=== PATIENT | male | born 1960 | race Caucasian/White ===

== ENCOUNTER 2018-01-14 14:09 | Outpatient (CLI) | payer MEDICARE ==
[2018-01-14 15:22] LABS: #Basophils 0.1 thou/uL (0.0-0.2); #Eosinphils 0.1 thou/uL (0.0-0.7); #Lymphocytes 2.1 thou/uL (1.20-3.40); #Monocytes 0.6 thou/uL (0.11-0.59); #Neutrophils 4.8 thou/uL (1.40-6.50); %Basophils 0.8 % (0.0-1.0); %Eosinophils 1.6 % (0.0-10.0); %Lymphocytes 27.4 % (21.0-51.0); %Monocytes 8.1 % (0.0-10.0); %Neutrophils 62.2 % (42.0-75.0); Hemoglobin 13.7 g/dL (14.0-18.0); Mean Corpuscular HGB CONC 33.1 g/dL (32.0-36.0); Mean Corpuscular Hemoglobin 30.8 pg (27.0-31.0); Mean Corpuscular Volume 93.2 fL (78.0-98.0); Mean Platelet Volume 8.1 fL (7.4-10.4); Platelet Count 170 thou/uL (130-400); RBC Distribution Width 11.4 % (11.5-14.5); Red Blood Cell (RBC) Count 4.46 mill/uL (4.70-6.10); White Blood Cell (WBC) Count 7.8 thou/uL (4.8-10.8)
[2018-01-14 15:41] LABS: ALT (SGPT) 19 U/L (8-55); AST (SGOT) 19 U/L (5-34); Albumin 4.6 g/dL (3.5-5.0); Alkaline Phosphatase 94 U/L (40-150); Anion Gap 9 mmol/L (10-20); BUN (Urea Nitrogen) 12 mg/dL (8.4-25.7); Bilirubin, Total 0.3 mg/dL (0.2-1.2); Calc. Creatinine Clearance 0 mL/min (70-130); Calcium 9.8 mg/dL (7.8-10.44); Carbon Dioxide 35 mmol/L (22-29); Chloride 97 mmol/L (98-107); Estimated GFR-MDRD Greater than 90; Globulin 3.6 g/dL (2.4-3.5); Glucose 100 mg/dL (70-105); Potassium 4.2 mmol/L (3.5-5.1); Protein, Total 8.2 g/dL (6.0-8.3); Sodium 137 mmol/L (136-145)
== END 2018-01-14 14:10 | disposition home or self-care (01) ==
LOC: LABBT 14:09
PROVIDERS: ATTEND Surgery
DX: Z01.818 Encounter for other preprocedural examination (principal); Z46.2 Encounter for fitting and adjustment of other devices related to nervous system and special senses
CPT/HCPCS: 80053; 85025; 93005; 93010

== ENCOUNTER 2018-01-17 07:33 | Day surgery (SDC) | payer MEDICARE ==
[2018-01-14 14:23] VITALS: BMI 36.8
[2018-01-17] MEDS ORDERED: CEFAZOLIN/Water 2 GM/20 ML SYRINGE ONE (08:45)
[2018-01-17] MEDS ORDERED: Lidocaine 1% (PF) 30 ML VIAL ONE (09:09)
[2018-01-17] MEDS ORDERED: Bupivacaine HCl 0.5%/Epinephrine 1:200,000/PF 30 ml Vial ONE (09:09)
[2018-01-17] MEDS ORDERED: Sodium Chloride 0.9% 0 ML ONE (09:09)
[2018-01-17] MEDS ORDERED: Midazolam HCl 2 mg/2 ml Vial ONE ×2 (09:25→09:26)
[2018-01-17] MEDS ORDERED: HYDROmorphone 2 MG/ML VIAL ONE (09:26)
[2018-01-17] MEDS ORDERED: Fentanyl 100 MCG/2 ML VIAL ONE (09:26)
--- NOTE | 2018-01-17 11:46 | OP ---
PREOPERATIVE DIAGNOSIS: Pain pump, battery depletion. SURGEON: Dakotah Quarles M.D. PROCEDURE PERFORMED: Removal and replacement of implantable programmable intrathecal pain pump. INDICATIONS: This is a 57-year-old male who has an existing pain pump for chronic pain, whose batter y is depleted and needs replacement. FINDINGS: The cavity around the old pump had this milky creamy fluid surrounding it like lymphatic f luid. Cultures were obtained, did not appear infected. PROCEDURE IN DETAIL: After informed consent was obtained, the patient was taken to the operating reza m and given general mask anesthesia, placed in the supine position. His flank and abdomen was preppe d and draped in usual fashion. Local anesthesia infiltrated subcutaneously and deep. Transverse inc ision was performed. The subcu divided sharply. When the capsule was incised, this white creamy flu id came out from around the pain pump. This was sent for culture. There was also calcification of t he membrane around the pain pump as well. I was able to then extract the old pain pump and disconnec t the tubing. Prior to disconnecting the tubing, we aspirated the pain pump to clear the system and tubing of medicine and to ensure good CSF flow. Then, the old pain pump was disconnected. The drug was removed from the old pain pump. The new pain pump was emptied of saline and the drug was then pl aced in the new pain pump. The new pain pump was then connected to the tubing and tubing secured wit h 0 silk suture. A 2-0 Prolene sutures were placed in 4 quadrants. The cavity was thoroughly irriga dario with saline and all the white stuff was removed from the cavity. I did not see any active extrav asation of other white stuff. The tubing inspected and there was not a leak seen on the tubing. The tubing was curled posteriorly and the new pain pump was placed within this cavity. The Prolenes wer e then tied down to secure it in place. The subcu was reapproximated with interrupted 0 Vicryl sutur e and the skin closed with a running subcuticular 4-0 Rapide. Steri-Strips applied. Sterile bandage applied. The patient tolerated the procedure well and was transferred to recovery in good condition . Sponge and needle count verified correct x2.
[2018-01-17] MEDS ORDERED: PROPOFOL 200 MG/20 ML VIAL ONE (13:15)
[2018-01-17] MEDS ORDERED: Lidocaine 1% PF 5 ML VIAL ONE (13:15)
[2018-01-17] MEDS ORDERED: Glycopyrrolate 0.2 MG/ML 5 ML SYRINGE ONE (13:15)
== END 2018-01-17 12:05 | disposition home or self-care (01) ==
LOC: SDC 07:33
PROVIDERS: ATTEND Surgery
PROC: 0JPT0VZ Removal of Infusion Pump from Trunk Subcutaneous Tissue and Fascia, Open Approach (ICD-10-PCS; principal; 2018-01-17)
PROC: 0JH Subcutaneous Tissue and Fascia, Insertion (ICD-10-PCS; 2018-01-17)
DX: Z45.1 Encounter for adjustment and management of infusion pump (principal); G89.29 Other chronic pain; M54.9 Dorsalgia, unspecified; M81.0 Age-related osteoporosis without current pathological fracture; I10 Essential (primary) hypertension; E78.5 Hyperlipidemia, unspecified; K21.9 Gastro-esophageal reflux disease without esophagitis; I25.10 Atherosclerotic heart disease of native coronary artery without angina pectoris; J44.9 Chronic obstructive pulmonary disease, unspecified; G43.909 Migraine, unspecified, not intractable, without status migrainosus; F17.210 Nicotine dependence, cigarettes, uncomplicated; Z79.84 Long term (current) use of oral hypoglycemic drugs; Z79.899 Other long term (current) drug therapy; Z88.8 Allergy status to other drugs, medicaments and biological substances; Z91.013 Allergy to seafood; Z99.81 Dependence on supplemental oxygen
CPT/HCPCS: 62362; 87070; 87075; 87205; C1772; A4216; J0670; J1170; J2001; J2250; J2704; J3010

== ENCOUNTER 2018-03-12 08:02 | Outpatient (CLI) | payer MEDICARE ==
--- NOTE | 2018-03-12 11:32 | MRI ---
MRI LUMBAR SPINE WITHOUT CONTRAST: HISTORY: S32.050A, closed compression fracture, fifth lumbar vertebra, initial encounter. COMPARISON: MRI lumbar spine from 2015. FINDINGS: The bones are osteoporotic. The aortic contour is nonaneurysmal. Mild tortuosity of the aorta. Multiple T2 hyperintense foci of the left kidney, suggestive of cysts. No marrow infiltrative process. The conus medullaris terminates near the inferior endplate of L1. There are compression fractures throughout the lumbar spine, from L1 to L5, which all contain cement. The L2 and L4 compression fractures have mildly progressed from the comparison examination. The re mainder of the compression fractures are similar. There is no significant edema, to suggest acuity. These are likely chronic fractures. There is slight progress posterior displacement of the inferior endplate of L1, which narrows the spi nal canal to approximately 9 mm. There is narrowing of the interspinous spaces throughout the lumbar spine. Levels are as follows: L1-L2: Posterior displacement of the inferior endplate of L1, in the left paracentral subforaminal z one, causing moderate left-sided neural foraminal narrowing, with abutment of the exiting nerve root. Mild facet arthrosis. L2-L3: Mild posterior displacement of the posterior-superior endplate of L1, chronic from old fractu re. Minimal neural foraminal narrowing. Moderate facet arthropathy. L3-L4: Mild degenerative posterior disk space height loss. Low grade facet arthrosis. Bilateral sm all subforaminal posterior disk osteophyte complex. There is mild bilateral neural foraminal narrowi ng. L4-L5: Mild disk desiccation. Bilateral subforaminal posterior disk osteophyte complex causing mode rate bilateral neural foraminal narrowing. There is also moderate facet arthrosis. L5-S1: Normal disk height. Severe facet arthrosis on the right and moderate on the left. No signif icant neural foraminal or spinal canal narrowing. IMPRESSION: 1. No acute fracture. 2. Mild progressive height loss of the L2 vertebral body fracture, approximately 10% to 15%, with mi nimal progressive height loss of the L4 vertebral fracture, with approximately 5% height loss. 3. Mild neural foraminal narrowing at multiple levels, as described above, predominantly due to post erior subforaminal disk osteophyte complexes. 4. No significant spinal canal narrowing. 5. Small focus of cement abutting the anterior epidural space and possibly along the dura, at the le lashawn of L1. POS: BRITTANY
== END 2018-03-12 08:03 | disposition home or self-care (01) ==
LOC: MRI 08:02
PROVIDERS: ATTEND Anesthesiology Pain Medicine
DX: S32.050A Wedge compression fracture of fifth lumbar vertebra, initial encounter for closed fracture (principal); M48.061 Spinal stenosis, lumbar region without neurogenic claudication; S32.029A Unspecified fracture of second lumbar vertebra, initial encounter for closed fracture; S32.049A Unspecified fracture of fourth lumbar vertebra, initial encounter for closed fracture
CPT/HCPCS: 72148

== ENCOUNTER 2018-03-19 14:19 | Outpatient (CLI) | payer MEDICARE ==
--- NOTE | 2018-03-19 15:30 | RAD ---
TWO VIEWS CHEST: HISTORY: Dyspnea. FINDINGS: Two views chest obtained on 03/19/2018. Comparison is made to a previous chest radiograph from 10/15/19 13. Two views chest demonstrate lower thoracic numerous vertebroplasties involving the majority of the lo wer thoracic spine. The lungs are well aerated. No evidence of acute intrathoracic abnormality is s een. The sternum is unremarkable. IMPRESSION: Multilevel lower thoracic vertebroplasty changes. POS: ADALBERTO
== END 2018-03-19 14:20 | disposition home or self-care (01) ==
LOC: RAD 14:19
PROVIDERS: ATTEND Internal Medicine Critical Care Medicine
DX: R06.00 Dyspnea, unspecified (principal); Z98.890 Other specified postprocedural states
CPT/HCPCS: 71046

== ENCOUNTER 2018-03-21 12:02 | Outpatient (CLI) | payer MEDICARE ==
--- NOTE | 2018-03-21 14:17 | RAD ---
LUMBAR SPINE RADIOGRAPHS 2 VIEWS: Date: 03/21/18 PROVIDED CLINICAL HISTORY: Back pain. FINDINGS: Comparison made with the study dated 11/25/05. Lumbar alignment appears normal. Vertebroplasty changes are seen at all lumbar vertebral levels and v isualized lower thoracic vertebral levels. Multilevel loss of superior end plate vertebral body heigh t. Epidural pain pump partially visualized. Vascular calcifications are seen. Bilateral total hip art hroplasty changes are partially visualized. IMPRESSION: Multilevel thoracic and lumbar compression deformities with vertebroplasty change as above. POS: OFF
== END 2018-03-21 12:03 | disposition home or self-care (01) ==
LOC: RAD 12:02
PROVIDERS: ATTEND Nurse Practitioner Family
DX: M54.5 Low back pain (principal); M43.8X6 Other specified deforming dorsopathies, lumbar region; M43.8X4 Other specified deforming dorsopathies, thoracic region; Z98.890 Other specified postprocedural states
CPT/HCPCS: 72100

== ENCOUNTER 2018-04-03 17:24 | Outpatient (CLI) | payer MEDICARE ==
[2018-04-03 18:19] LABS: Bilirubin Negative (Negative); Blood, Urine Moderate (Negative); Clarity CLEAR (Clear); Glucose, Urine (Dipstick) Negative (Negative); Hemoglobin 13.2 g/dL (14.0-18.0); Leukocyte Trace (Negative); Mean Corpuscular HGB CONC 34.4 g/dL (32.0-36.0); Mean Corpuscular Hemoglobin 31.7 pg (27.0-31.0); Mean Corpuscular Volume 92.4 fL (78.0-98.0); Mean Platelet Volume 7.9 fL (7.4-10.4); Nitrite Negative (Negative); Platelet Count 175 thou/uL (130-400); Protein, Urine (Dipstick) 30 mg/dL (Neg-Trace); RBC Distribution Width 11.4 % (11.5-14.5); Red Blood Cell (RBC) Count 4.15 mill/uL (4.70-6.10); Specific Gravity, Urine 1.015 (1.002-1.036); White Blood Cell (WBC) Count 6.6 thou/uL (4.8-10.8)
[2018-04-03 18:21] LABS: Bacteria/HPF None Seen HPF (None Seen); Hyaline Casts/LPF 0-3 HYALINE CAST LPF (0-3 Hyaline); Pathc Cast-AUWi Flag 0.29 (0-2.49); RBC/HPF 21-50 HPF (0-3); Squamous Epithelial 0-3 HPF (0-3); WBC/HPF 0-3 HPF (0-3)
[2018-04-03 18:25] LABS: INR-International Normal Ratio 0.9; Prothrombin Time 12.6 SEC (12.0-14.7)
[2018-04-03 18:26] LABS: PTT 30.8 SEC (22.9-36.1)
[2018-04-03 18:42] LABS: Anion Gap 14 mmol/L (10-20); BUN (Urea Nitrogen) 14 mg/dL (8.4-25.7); Calc. Creatinine Clearance 0 mL/min (70-130); Calcium 9.8 mg/dL (7.8-10.44); Carbon Dioxide 30 mmol/L (22-29); Chloride 99 mmol/L (98-107); Estimated GFR-MDRD Greater than 90; Glucose 95 mg/dL (70-105); Potassium 3.7 mmol/L (3.5-5.1); Sodium 139 mmol/L (136-145)
--- NOTE | 2018-04-05 07:27 | EKG ---
Test Reason : Blood Pressure : / mmHG Vent. Rate : 056 BPM Atrial Rate : 056 BPM P-R Int : 142 ms QRS Dur : 094 ms QT Int : 440 ms P-R-T Axes : 022 055 035 degrees QTc Int : 424 ms Sinus bradycardia Otherwise normal ECG When compared with ECG of 14-JAN-2018 14:54, No significant change was found Confirmed by KRISTINA BUI ([id number]) on 04/05/2018 7:27:17 AM Referred By: CASSIDY Confirmed By:KRISTINA BUI
== END 2018-04-03 17:25 | disposition home or self-care (01) ==
LOC: LABBT 17:24
PROVIDERS: ATTEND Family Medicine
DX: Z47.1 Aftercare following joint replacement surgery (principal); Z96.642 Presence of left artificial hip joint
CPT/HCPCS: 80048; 81001; 85027; 85610; 85730; 87086; 93005; 93010

== ENCOUNTER 2018-04-04 07:46 | Inpatient (IN) | payer MEDICARE ==
[2018-04-03 17:32] VITALS: BMI 37.0
[2018-04-04] MEDS ORDERED: Levofloxacin 500 mg/D5W 100 ml Premix Bag ONE (09:41)
[2018-04-04] MEDS ORDERED: Midazolam HCl 2 mg/2 ml Vial ONE (10:13)
[2018-04-04] MEDS ORDERED: KETAMINE 100 MG/ML (5ML VIAL) ONE (10:13)
[2018-04-04] MEDS ORDERED: B & O ONE (10:19)
[2018-04-04] MEDS ORDERED: Bisacodyl 10 MG SUPP PR PRN (11:46)
[2018-04-04] MEDS ORDERED: Dextrose 5% in Water 1,000 ML IV PRN (11:46)
[2018-04-04] MEDS ORDERED: Dextrose 50% Abboject 50 ML SYRINGE SLOW IVP PRN (11:46)
[2018-04-04] MEDS ORDERED: Hyoscyamine Sulfate SL 0.125 mg Tablet SL PRN (11:46)
[2018-04-04] MEDS ORDERED: diphenhydrAMINE 25 MG CAP PO PRN (11:46)
[2018-04-04] MEDS ORDERED: hydrALAZINE 20 MG/ML VIAL SLOW IVP PRN (11:46)
[2018-04-04] MEDS ORDERED: Ondansetron PF 4 MG/2 ML Vial IVP PRN (11:46)
[2018-04-04] MEDS ORDERED: Insulin Regular 300 UNITS/3 ML VIAL SC PRN (11:46)
[2018-04-04] MEDS ORDERED: Fentanyl 100 MCG/2 ML VIAL ONE ×3 (12:16→13:29)
[2018-04-04] MEDS: Fentanyl 100 MCG/2 ML VIAL SLOW IVP PRN ×2 (15:08→21:26)
[2018-04-04] MEDS: ALPRAZolam 1 MG TAB PO SCH ×2 (15:10→20:14)
--- NOTE | 2018-04-04 15:30 | OP ---
DATE OF PROCEDURE: 04/04/2018 SERVICE: Urology. PREOPERATIVE DIAGNOSIS: BPH. POSTOPERATIVE DIAGNOSIS: BPH. PROCEDURE PERFORMED: Transurethral vaporization of the prostate. INDICATIONS FOR PROCEDURE: Mr. Lee is a 58-year-old white male with severe urinary symptoms, which have been refractory to most conservative treatments. He has undergone urodynamics and cystoscopy demonstrating bladder outlet obstruction with significant high-pressure low-flow stream. We elected to take him for surgery after all other alternative options had been exhausted, and the patient has had cardiac and pulmonary clearance. Risks and benefits have been discussed, and he has agreed to proceed forward. DESCRIPTION OF PROCEDURE: After identification of arm band and verification of consent, the patient was brought back to the operating room, where he underwent general anesthesia with an LMA. He was placed in dorsal lithotomy position and prepped and draped in the usual sterile fashion. After appropriate time-out, a 26-Hungarian visual obturator lubricated sheath was inserted through the urethra into the bladder. The visual obturator was removed, and the bipolar PlasmaButton was brought in. The ureteral orifices were identified to be well away from the bladder neck, and vaporization was started out at the bladder neck and carried out distally to the apex of the prostate. This was done circumferentially until fibers of the capsule could be identified. The bladder neck was incised at the 5 and 7 o'clock to open up the bladder neck wider as this was the primary point of obstruction as the prostate was not that large. Once completely opened, I felt the patient should be able to urinate much more easily. The prostate bed was then cauterized extensively until there was excellent hemostasis. The resectoscope was then removed leaving the bladder full. Both ureters were identified before removal of the scope and found to be unharmed and well away from the bladder neck. A 22-Hungarian three-way Martinez catheter was inserted into the bladder with ease with 30 mL of sterile water placed in the balloon. CBI was initiated. The catheter was secured with a StatLock. A 16-A B and O suppository was placed in the patient's rectum. He was then awakened and taken to PACU for recovery in stable condition. COMPLICATIONS: None. ESTIMATED BLOOD LOSS: Minimal. RETAINED TUBES AND DRAINS: A 22-Hungarian three-way Martinez catheter with 30 mL of sterile water in the balloon. SPECIMENS: None. DISPOSITION: The patient will be kept in the hospital overnight and monitored. We will plan a voiding trial in the morning and be discharged to home subsequently. Job ID: [id number]
[2018-04-04] MEDS: HYDROcodone/Acetaminophen 10/325 mg Tablet PO PRN (17:58)
[2018-04-04] MEDS: Gemfibrozil 600 MG TAB PO SCH (17:58)
[2018-04-04] MEDS: Oxybutynin 5 MG TAB PO PRN (20:14)
[2018-04-04] MEDS: Docusate 100 MG CAP PO SCH (20:14)
[2018-04-04] MEDS ORDERED: Amlodipine 5 MG TAB PO SCH (21:00)
[2018-04-04] MEDS ORDERED: Dexamethasone 20 MG/5 ML VIAL ONE (22:46)
[2018-04-04] MEDS ORDERED: PROPOFOL 200 MG/20 ML VIAL ONE (22:46)
[2018-04-04] MEDS ORDERED: Lidocaine 1% PF 5 ML VIAL ONE (22:46)
[2018-04-04] MEDS ORDERED: Ondansetron PF 4 MG/2 ML Vial ONE (22:46)
[2018-04-05] MEDS: HYDROcodone/Acetaminophen 10/325 mg Tablet PO PRN ×2 (02:40→12:04)
[2018-04-05] MEDS: Oxybutynin 5 MG TAB PO PRN (04:05)
[2018-04-05] MEDS: Gemfibrozil 600 MG TAB PO SCH ×2 (06:36→17:48)
[2018-04-05] MEDS ORDERED: metFORMIN 500 MG TAB PO SCH (08:00)
[2018-04-05 08:37] LABS: #Lymphocytes 1.6 thou/uL (1.20-3.40); #Monocytes 0.7 thou/uL (0.11-0.59); #Neutrophils 5.1 thou/uL (1.40-6.50); %Basophils 0.4 % (0.0-1.0); %Eosinophils 0.1 % (0.0-10.0); %Lymphocytes 20.9 % (21.0-51.0); %Monocytes 9.7 % (0.0-10.0); %Neutrophils 68.8 % (42.0-75.0); Hemoglobin 12.1 g/dL (14.0-18.0); Mean Corpuscular HGB CONC 34.1 g/dL (32.0-36.0); Mean Corpuscular Hemoglobin 31.3 pg (27.0-31.0); Mean Corpuscular Volume 91.9 fL (78.0-98.0); Mean Platelet Volume 8.1 fL (7.4-10.4); Platelet Count 167 thou/uL (130-400); RBC Distribution Width 11.3 % (11.5-14.5); Red Blood Cell (RBC) Count 3.86 mill/uL (4.70-6.10); White Blood Cell (WBC) Count 7.4 thou/uL (4.8-10.8)
[2018-04-05 08:54] LABS: Anion Gap 12 mmol/L (10-20); BUN (Urea Nitrogen) 10 mg/dL (8.4-25.7); Calc. Creatinine Clearance 173 mL/min (70-130); Calcium 9.4 mg/dL (7.8-10.44); Carbon Dioxide 26 mmol/L (22-29); Chloride 100 mmol/L (98-107); Estimated GFR-MDRD Greater than 90; Glucose 130 mg/dL (70-105); Potassium 3.6 mmol/L (3.5-5.1); Sodium 134 mmol/L (136-145)
[2018-04-05] MEDS ORDERED: Bisoprolol Fumarate/HCTZ 10 mg/6.25 mg Tablet PO SCH (09:00)
[2018-04-05] MEDS ORDERED: Amlodipine 5 MG TAB PO SCH (09:00)
[2018-04-05] MEDS: Docusate 100 MG CAP PO SCH (09:40)
[2018-04-05] MEDS: ALPRAZolam 1 MG TAB PO SCH ×3 (09:40→17:48)
[2018-04-05] MEDS: Fentanyl 100 MCG/2 ML VIAL SLOW IVP PRN (09:41)
--- NOTE | 2018-04-05 15:11 | PRG ---
DATE OF SERVICE: 04/05/2018 SUBJECTIVE: The patient had no complaints overnight. He had very few bladder spasms, which were well controlled on oxybutynin. Denied any hematuria or significant pain. His heart was good. He did not have any chest pain or shortness of breath. OBJECTIVE: VITAL SIGNS: Temperature 97.7, pulse 60, respirations 18, blood pressure 160/80, and saturation is 98% on room air. GENERAL: In no apparent distress, communicating, and alert. CARDIOVASCULAR: Regular rate and rhythm. Normal S1 and S2. ABDOMEN: Soft, nontender, nondistended, protuberant. : Martinez catheter in place. Clear yellow urine on CBI. CBI was stopped and the patient did not have any worsening hematuria, so catheter was removed. After filling the bladder with CBI fluid, the patient was able to void 200 with a bladder scan residual of 100 mL. EXTREMITIES: 1+ edema. No clubbing or cyanosis. LABORATORY DATA: On laboratory evaluation, the full set of labs in the [facility], which I have reviewed. Of note, white count of 7.4 with hemoglobin of 12.1 and creatinine of 0.65. ASSESSMENT AND PLAN: A 58-year-old white male with BPH and obstruction, status post transurethral vaporization of prostate postop day 1 with successful void trial. He did have a mild residual which is not concerning as he is on a lot of pain medication and recently had surgery. I would expect his urinary symptoms to improve over the course of the next several weeks. I think he can go ahead and be discharged home without a catheter. Prescriptions have already been sent into his pharmacy, and he will follow up with me on April 24 for postop check. Job ID: [id number]
[2018-04-05 16:01] VITALS: BP 137/79; TEMP 98.1
--- NOTE | 2018-04-06 01:53 | DIS ---
DATE OF ADMISSION: 04/04/2018 DATE OF DISCHARGE: 04/05/2018 ADMITTING DIAGNOSIS: Benign prostatic hyperplasia. DISCHARGE DIAGNOSIS: Benign prostatic hyperplasia. ADMITTING PHYSICIAN: Felton Stephen MD DISCHARGE PHYSICIAN: Felton Stephen MD PROCEDURE PERFORMED: Transurethral vaporization of prostate. BRIEF HISTORY: Mr. Lee is a 58-year-old white male with COPD, emphysema, and congestive heart failure with coronary artery disease with BPH and urinary problems. He had undergone urodynamics, which demonstrated significant obstruction with cystoscopy confirming a very tight bladder neck. He elected to go for a transurethral vaporization of the prostate and is now coming into the hospital for the surgery. The full H and P can be found in the scanned portion of the [employer] system. HOSPITAL COURSE: (please see operative note for details). After surgery, the patient was kept in the hospital overnight for CBI. His CBI was stopped the next morning and his catheter removed. After filling his bladder up to the CBI fluid, the patient was able to void 200 mL with 100 mL PVR. His urine was very clear with hardly any blood and he did not report any pain. He was felt stable to be discharged home with adequate emptying and was discharged without a Martinez. DISPOSITION: Discharged to home. DISCHARGE CONDITION: Good. DISCHARGE MEDICATIONS: Please see MAR. The patient was prescribed tramadol but on accident as he is already on a pain contract with Dr. Loyd. I have asked him to contact Dr. Loyd and let him know that I accidentally prescribed tramadol and if it was okay with Dr. Loyd, he could take the tramadol. Otherwise, he has to take it back to the pharmacy to have it disposed off. DISCHARGE INSTRUCTIONS: Include no heavy lifting or strenuous activity. Avoid constipation. Stay well hydrated between 1.5 to 2 L of water per day. Avoid long car rides. He used to notify me for any inability to urinate, severe bleeding, severe pain, shortness of breath, chest pain or any other concerning signs and symptoms that he may have. Followup will be on April 24 for a postop check. Job ID: [id number]
== END 2018-04-05 18:50 | disposition home or self-care (01) | DRG 713 ==
LOC: SDC 07:46 → SJJU 11:46
PROVIDERS: ADMIT Urology; ATTEND Urology
PROC: 0V508ZZ Destruction of Prostate, Via Natural or Artificial Opening Endoscopic (ICD-10-PCS; principal; 2018-04-04)
DX: N40.1 Benign prostatic hyperplasia with lower urinary tract symptoms (principal); N13.8 Other obstructive and reflux uropathy; R39.12 Poor urinary stream; I50.9 Heart failure, unspecified; Z88.6 Allergy status to analgesic agent; Z91.013 Allergy to seafood; I11.0 Hypertensive heart disease with heart failure; K21.9 Gastro-esophageal reflux disease without esophagitis; G47.33 Obstructive sleep apnea (adult) (pediatric); K22.70 Barrett's esophagus without dysplasia; Z97.8 Presence of other specified devices; Z99.81 Dependence on supplemental oxygen; J43.9 Emphysema, unspecified; Z79.84 Long term (current) use of oral hypoglycemic drugs; E78.5 Hyperlipidemia, unspecified; M81.0 Age-related osteoporosis without current pathological fracture; I25.10 Atherosclerotic heart disease of native coronary artery without angina pectoris; I27.81 Cor pulmonale (chronic); F17.210 Nicotine dependence, cigarettes, uncomplicated; R09.02 Hypoxemia; E11.9 Type 2 diabetes mellitus without complications; M19.90 Unspecified osteoarthritis, unspecified site; E66.9 Obesity, unspecified; I70.1 Atherosclerosis of renal artery; Z68.37 Body mass index [BMI] 37.0-37.9, adult; Z47.1 Aftercare following joint replacement surgery; Z96.642 Presence of left artificial hip joint
CPT/HCPCS: 36415; 36416; 80048; 81001; 85025; 85027; 85610; 85730; 87086; 93005; 93010; J1100; J1815; J1956; J2001; J2250; J2405; J2704; J3010

== ENCOUNTER 2022-05-01 12:15 | Outpatient (CLI) | payer MEDICARE | END 2022-05-01 12:16 | disposition home or self-care (01) | LOC: TBSIIMAG 12:15 | PROVIDERS: ATTEND Nurse Practitioner Family | DX: S22.089A Unspecified fracture of T11-T12 vertebra, initial encounter for closed fracture (principal); S32.019A Unspecified fracture of first lumbar vertebra, initial encounter for closed fracture; G95.19 Other vascular myelopathies; M47.816 Spondylosis without myelopathy or radiculopathy, lumbar region; Z98.890 Other specified postprocedural states | CPT/HCPCS: 72146; 72148 ==

== ENCOUNTER 2022-06-21 12:27 | Outpatient (CLI) | payer MEDICARE | END 2022-06-21 12:28 | disposition home or self-care (01) | LOC: BICCT 12:27 | PROVIDERS: ATTEND Anesthesiology Pain Medicine | DX: M54.6 Pain in thoracic spine (principal); S22.051A Stable burst fracture of T5-T6 vertebra, initial encounter for closed fracture; Z98.890 Other specified postprocedural states | CPT/HCPCS: 72128 ==